=== PATIENT | male | born 1955 | race Caucasian/White ===

== ENCOUNTER 2017-10-21 20:25 | Emergency (ER) | payer BC ==
[~2017-10-21] VITALS: Ht 182.9 cm; Wt 86.4 kg
[~2017-10-21 20:25] MED LIST: CHONDROITIN COM1 CAP PO; FISH OIL CONC1000 MG PO; GOOD SENSE ASP325 M1 PO; LABETALOL100 MG PO; LISINOPRIL5 MG PO; MULTI-VITAMIN W1 TAB PO; ZOCOR 20MG20 MG PO
[2017-10-21 20:29] VITALS: TEMP 98.7
[2017-10-21] MEDS ORDERED: ASPIRIN 81M81 MG/TA2 PO (20:58)
[2017-10-21] MEDS ORDERED: PRILOSEC 20MG20 MG PO (22:40)
[2017-10-21 23:17] VITALS: BP 134/92; PULSE 64
== END 2017-10-21 23:32 | disposition home or self-care (01) ==
LOC: COL.ER 20:25
DX: T18.128A Food in esophagus causing other injury, initial encounter (principal); Z79.82 Long term (current) use of aspirin; X58.XXXA Exposure to other specified factors, initial encounter
CPT/HCPCS: J2250; J3010; J7030

== ENCOUNTER 2021-05-16 16:39 | Emergency (ER) | payer MEDICARE, BC ==
[~2021-05-16] VITALS: Ht 182.9 cm; Wt 86.4 kg
[~2021-05-16 16:39] MED LIST changes: +ASPI325T6 PO; +ASPIRIN 81M81 MG/TA2 PO; +CELEBREX 200MG200 MG PO; +GLUCOSAMINE & C1 CA2 PO; +NORCO 325 MG-7.1 TAB PO; +PRILOSEC 20MG20 MG PO; +ULTRAM 50MG TAB50 MG PO
[2021-05-16 16:46] VITALS: TEMP 97.8
[2021-05-16] MEDS ORDERED: TUMERIC (17:44)
[2021-05-16 20:18] VITALS: BP 192/98; PULSE 62
== END 2021-05-16 20:20 | disposition home or self-care (01) ==
LOC: COL.ER 16:39
DX: T18.128A Food in esophagus causing other injury, initial encounter (principal); X58.XXXA Exposure to other specified factors, initial encounter
CPT/HCPCS: C1726; J0330; J0360; J2704; J7030